=== PATIENT | male | born 1990 | race Caucasian/White ===

== ENCOUNTER 2021-06-17 01:16 | Inpatient (IN) | payer OTHER ==
[~2021-06-17] VITALS: Ht 170.2 cm; Wt 76.2 kg
--- NOTE | 2021-06-17 01:25 | PHYS DOC ---
General Adult EDM: Chief Complaint: ABDOMINAL PAIN HPI: HPI: ".. I am hurting.. I ve had something like this before.. about 2 yrs. ago.. I ended up at [facility].. I got admitted.. and was given some antibiotics.. . everything got better.. was schedule for some follow up through [facility]..that never took place.. and I eventual got deployed to [facility]... I ve been there for the past year... and just got back.. I didnt have any problems when I was stationed over in [facility].. I was also at one time to get my heart checked out..because they said I had an abnormal rhythm... but that never happened either.. " " I am worried... 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 Patient states the pain radiates to his back and left. Pain started approximately 2100 hrs. yesterday night. Pain has persistent since that time. Patient has not been able to eat because of nausea. Patient states that approximately 1600 hrs. pain became much more severe. Rates pain as 7-8/10. Patient denies any trauma. Has had recent travel from [place] that has arrived back here after a year deployment near the [facility] in [facility]. Patient states he had no abdomen complaints during the entire year deployment. No significant ill contacts prior to transfer back to [place], and no sick contacts since he has been back. No family members are sick. Patient states he has completed one COVID vaccination. Patient rates his irregular heart rhythm has gotten worse with the abdomen pain. Patient denies any chest pain. Patient denies his irregular heart rhythms never caused him any discomfort or limit of his activity. Patient is has not consumed any bad food products. Patient denies any alcohol abuse. Patient denies any history of prior diagnosis of colitis with him or family members. Patient denies any trauma. Patient denies any immunosuppression. Patient denies any diarrhea. Has had significant nausea since the onset of pain. No history of kidney stones. Patient denies any cough or fever. Patient denies any significant history of GERD or history of tarry stools. Patient states his stools yesterday had remained normal. Patient never had a colonoscopy or EGD evaluation. Patient never had a cardiac consult. Review of Systems: Review of Systems: Constitutional: Denies fever or chills Eyes: Denies change in visual acuity HENT: Denies nasal congestion or sore throat Respiratory: Denies cough or shortness of breath Cardiovascular: Denies chest pain or edema. Does complain of skipped heart beats GI: Complains of severe epigastric abdominal pain, nausea,. Denies vomiting, bloody stools or diarrhea : Denies dysuria Musculoskeletal: Denies back pain or joint pain Integument: Denies rash Neurologic: Denies headache, focal weakness or sensory changes Endocrine: Denies polyuria or polydipsia Lymphatic: Denies swollen glands Psychiatric: Denies depression or anxiety Family History: Family History: Noncontributory to presentation Current Medications: Current Meds: See nursing for home meds Allergies: Allergies: No known drug allergies Physical Exam: PE: Constitutional: Well developed, well nourished, in severe acute distress, ill in appearance. [] HENT: Normocephalic, atraumatic, bilateral external ears normal, oropharynx dry, no oral exudates, nose normal. [] Eyes: PERRLA, EOMI, conjunctiva normal, no discharge. [] Neck: Normal range of motion, no tenderness, supple, no stridor. [] Cardiovascular: Irregular heart rate regular and irregular rhythm, no murmur []. Bedside monitor shows bigeminy With ventricular rate in the 80s Lungs & Thorax: Bilateral breath sounds equal apex on auscultation [] Abdomen: Bowel sounds markedly decreased, soft, severe epigastric tenderness, no masses, no pulsatile masses. Distended. Has rebound epigastric. Guarded with any movement of his abdomen. Circumcised male testicles descended nontender. Skin: Warm, diaphoretic, no erythema, no rash. Tattoos. Back: No tenderness, no CVA tenderness. [] Extremities: No tenderness, no cyanosis, no clubbing, ROM intact, no edema. No psoas sign. Neurologic: Alert and oriented X 3, normal motor function, normal sensory func tion, no focal deficits noted. DTRs +2 patella and brachial. Plant Attendant equal. No drift. Psychologic: Affect anxious, judgement normal, mood normal. [] Current Patient Data: Labs: Labs are not crossing over.Significant labs are addressed in Impression. EKG: EKG: My interpretation EKG shows a ventricular rate of 88. Does have a sinus rhythm with persistent PVCs-bigeminy pattern. Does have a left bundle branch block. Abnormal EKG. Time of this EKG is 203 hours [] Radiology/Procedures: Radiology/Procedures: [place] [address] IMAGING REPORT Signed PATIENT: OLRNE JACKSON ACCOUNT: [id number] : 1990 LOCATION: ER AGE: 31 SEX: M EXAM STATUS: REG ER ORD. PHYSICIAN: AINSLEY STRINGER MD REASON: pain PROCEDURE: ACUTE ABDOMEN SERIES EXAM: Frontal view of the chest, AP views of the abdomen in upright and supine positions. CLINICAL INDICATION: Reason: pain / Spl. Instructions: / History: COMPARISON: None. FINDINGS and IMPRESSION: The heart is not enlarged. Mediastinal and hilar contours are normal. No focal parenchymal airspace opacity. No pleural effusion or pneumothorax. No abnormal small or large bowel dilatation. Moderate colonic stool content. No abnormal soft tissue mass effect. No suspicious calcifications are seen. No free intraperitoneal gas. Electronically signed by: Siva Guardado MD (06/17/2021 2:36 AM) [facility] DICTATED AND SIGNED BY: SIVA GUARDADO MD DATE: 06/17/21 0236 CC: AINSLEY STRINGER MD; PCP,NO ~MTH0 0 [][address] [address] IMAGING REPORT Signed PATIENT: LORNE JACKSON ACCOUNT: [id number] : 1990 LOCATION: ER AGE: 31 SEX: M EXAM STATUS: REG ER ORD. PHYSICIAN: AINSLEY STRINGER MD REASON: pain, OMNI 300, 75ml & OMNI 240, 30ml PROCEDURE: CT ABD PELV W/ORAL&IV CONTRAST EXAM: CT Abdomen and Pelvis with IV contrast CLINICAL HISTORY: Abdominal pain COMPARISON: none TECHNIQUE: Helical CT of the abdomen and pelvis was performed following the administration of intravenous contrast. Axial, coronal and sagittal reformatted images were generated. PQRS compliance statement - One or more of the following individualized dose reduction techniques were utilized for this study: 1. Automated exposure control 2. Adjustment of the mA and/or kV according to patient size 3. Use of iterative reconstruction technique FINDINGS: Lower Chest: Lung bases are clear. Abdomen and Pelvis: Hepatic hypoattenuation, fatty liver. Gallbladder is normal. No biliary ductal dilatation. Spleen and adrenal glands are unremarkable. Symmetric nephrograms. No focal renal lesion. No hydronephrosis. No hydroureter. Bladder is unremarkable. There is infiltration about the pancreatic tail which may be seen with pancreatitis. Focal low-attenuation within the pancreatic tail may represent pancreatic ischemia or focal edema. Moderate colonic stool content is seen. Appendix is normal. No small or large bowel dilatation. No bowel obstruction no abdominal or pelvic ascites. No abdominal or pelvic lymphadenopathy. Trace fat-containing periumbilical hernia. Bones: No aggressive osseous lesion is seen. Serpentine sclerosis right femoral head without collapse. IMPRESSION: 1. Changes of acute pancreatitis involving the pancreatic tail. Associated low- attenuation within the pancreatic tail likely from focal edema or ischemia. Recommend close attention on follow-up to exclude underlying pancreatic mass. 2. Hepatic hypoattenuation, fatty liver. 3. 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 Electronically signed by: Siva Guardado MD (06/17/2021 3:58 AM) [facility] DI[facility]ATED AND SIGNED BY: SIVA GUARDADO MD DATE: 06/17/21 0350 CC: AINSLEY STRINGER MD; PCP,NO ~MTH0 0 Heart Score: C/O Chest Pain: No HEART Score for Chest Pain: HEART Score for Chest Pain Response (Comments) Value History Moderately Suspicious 1 ECG Nonspecific Repolarizatio 1 Age < 45 0 Risk Factors No Risk Factors 0 Troponin < Normal Limit 0 Total 2 Risk Factors: Risk Factors: DM, Current or recent (<one month) smoker, HTN, HLP, family history of CAD, obesity. Risk Scores: Score 0 - 3: 2.5% MACE over next 6 weeks - Discharge Home Score 4 - 6: 20.3% MACE over next 6 weeks - Admit for Clinical Observation Score 7 - 10: 72.7% MACE over next 6 weeks - Early Invasive Strategies Course & Med Decision Making: Course & Med Decision Making Pertinent Labs and Imaging studies reviewed. (See chart for details) Patient remained in bigeminy off and on for most of the night . Patient not concerned about his heart rhythm. Patient's abdomen pain persisted throughout the night with minimal relief until second dose of morphine 10 mg. Discussed presentation, testing and treatment plan with Dr. Alvarado. Plan admit to his service and treat as pancreatitis. Patient may need more definitive evaluation of pancreas such as an MRI of contrast since pancreatic mass sometimes are hard to identify with normal CT work-up. Plan keep n.p.o. status and continue hydration.. Will get a cardiac consult for his bigeminy-which has been present reportedly for the last couple years if not more.. Impression: 1. Abdomen pain-epigastric 2. Pancreatitis-lipase 661 3. Elevated AST of 41 and ALT 67 4. Mild leukocytosis 12.1 5. Glucose 124 6. Bigeminy 7. Constipation. Patient admitted to service- awaiting bed opening in [facility]. [] Dragon Disclaimer: Dragon Disclaimer: This electronic medical record was generated, in whole or in part, using a voice recognition dictation system. Departure Departure: Referrals: PCP,NO (PCP) Dragon Disclaimer This chart was dictated in whole or in part using Voice Recognition software in a busy, high-work load, and often noisy Emergency Department environment. It may contain unintended and wholly unrecognized errors or omissions. Dragon Disclaimer This chart was dictated in whole or in part using Voice Recognition software in a busy, high-work load, and often noisy Emergency Department environment. It may contain unintended and wholly unrecognized errors or omissions. AINSLEY STRINGER MD Jun 17, 2021 01:25
[2021-06-17 02:08] LABS: BASO # 0.1 x10^3/uL (0.0-0.2); BASO % 1 % (0-3); EOS % 0 % (0-3); HEMATOCRIT 46.4 % (39.0-53.0); HEMOGLOBIN 15.8 g/dL (13.0-17.5); LYMPH # 1.7 x10^3/uL (1.0-4.8); LYMPH % 14 % (24-48); MEAN CORPUSCULAR HEMOGLOBIN 33 pg (25-35); MEAN CORPUSCULAR HGB CONC 34 g/dL (31-37); MEAN CORPUSCULAR VOLUME 97 fL (79-100); MONO % 9 % (0-9); NEUT # 9.1 x10^3uL (1.8-7.7); NEUT % 76 % (31-73); PLATELET COUNT 251 x10^3/uL (140-400); RED BLOOD COUNT 4.77 x10^6/uL (4.30-5.70); RED CELL DISTRIBUTION WIDTH 12.5 % (11.5-14.5); WHITE BLOOD COUNT 12.1 x10^3/uL (4.0-11.0)
[2021-06-17 02:09] LABS: CALCIUM 9.1 mg/dL (8.5-10.1); CREATININE 0.9 mg/dL (0.7-1.3); GFR 98.4; POTASSIUM 3.5 mmol/L (3.5-5.1)
[2021-06-17 02:14] LABS: BILIRUBIN,URINE SMALL (NEG); CLARITY,URINE CLEAR; COLOR,URINE YELLOW; GLUCOSE,URINE NEG (NEG); NITRITE,URINE NEG (NEG); RBC,URINE OCC /HPF (0-2); UROBILINOGEN,URINE 0.2 mg/dL (0.2 mg/dL); WBC,URINE RARE /HPF (0-4)
[2021-06-17 02:15] LABS: ALBUMIN 4.4 g/dL (3.4-5.0); DIRECT BILIRUBIN 0.2 mg/dL (0.0-0.2); TOTAL BILIRUBIN 0.8 mg/dL (0.2-1.0); TOTAL PROTEIN 7.9 g/dL (6.4-8.2)
[2021-06-17 02:15] LABS: BACTERIA,URINE 0 /HPF (0-FEW); SQUAMOUS EPITHELIAL CELL,UR OCC /LPF
[2021-06-17] MEDS ORDERED: MAGNESIUM HYDROXIDE 2,400 MG/30 ML ORAL.SUSP. PO ONE (02:30)
[2021-06-17] MEDS ORDERED: IV RINGERS SOLUTION,LACTATED 1,000 ML IV SCH (02:30)
[2021-06-17] MEDS ORDERED: ONDANSETRON PF 4 MG/2 ML VIAL. IVP ONE (02:30)
[2021-06-17] MEDS ORDERED: KETOROLAC 30 MG/ML VIAL. IVP ONE (02:30)
[2021-06-17] MEDS ORDERED: FAMOTIDINE 20 MG/2 ML VIAL IVP ONE (02:30)
--- NOTE | 2021-06-17 02:39 | RAD ---
EXAM: Frontal view of the chest, AP views of the abdomen in upright and supine positions. CLINICAL INDICATION: Reason: pain / Spl. Instructions: / History: COMPARISON: None. FINDINGS and IMPRESSION: The heart is not enlarged. Mediastinal and hilar contours are normal. No focal parenchymal airspace o pacity. No pleural effusion or pneumothorax. No abnormal small or large bowel dilatation. Moderate colonic stool content. No abnormal soft tissu e mass effect. No suspicious calcifications are seen. No free intraperitoneal gas. Electronically signed by: Siva Caceres MD (06/17/2021 2:36 AM) [facility]
[2021-06-17 02:45] LABS: INFLUENZA A PATIENT NEGATIVE (NEGATIVE); INFLUENZA B PATIENT NEGATIVE (NEGATIVE)
[2021-06-17] MEDS ORDERED: CONTRAST GIVEN. MC PRN (02:45)
[2021-06-17] MEDS ORDERED: IOHEXOL 240 MG/ML 50ML VIAL. PO ONE (03:00)
[2021-06-17] MEDS ORDERED: IOHEXOL 300 MG/ML 75 ML VIAL. IV ONE (03:00)
[2021-06-17] MEDS ORDERED: IV RINGERS SOLUTION,LACTATED 1,000 ML IV ONE (03:30)
[2021-06-17] MEDS ORDERED: MORPHINE SULFATE 10 MG/ML SYRINGE. SQ ONE ×2 (03:30→05:00)
--- NOTE | 2021-06-17 04:01 | RAD ---
EXAM: CT Abdomen and Pelvis with IV contrast CLINICAL HISTORY: Abdominal pain COMPARISON: none TECHNIQUE: Helical CT of the abdomen and pelvis was performed following the administration of intrave nous contrast. Axial, coronal and sagittal reformatted images were generated. PQRS compliance statement - One or more of the following individualized dose reduction techniques wer e utilized for this study: 1. Automated exposure control 2. Adjustment of the mA and/or kV according to patient size 3. Use of iterative reconstruction technique FINDINGS: Lower Chest: Lung bases are clear. Abdomen and Pelvis: Hepatic hypoattenuation, fatty liver. Gallbladder is normal. No biliary ductal dilatation. Spleen and adrenal glands are unremarkable. Symmetric nephrograms. No focal renal lesion. No hydronephrosis. No hydroureter. Bladder is unremarkable. There is infiltration about the pancreatic tail which may be seen with pancreatitis. Focal low-attenu ation within the pancreatic tail may represent pancreatic ischemia or focal edema. Moderate colonic stool content is seen. Appendix is normal. No small or large bowel dilatation. No homero wel obstruction no abdominal or pelvic ascites. No abdominal or pelvic lymphadenopathy. Trace fat-con taining periumbilical hernia. Bones: No aggressive osseous lesion is seen. Serpentine sclerosis right femoral head without collapse. IMPRESSION: 1. Changes of acute pancreatitis involving the pancreatic tail. Associated low-attenuation within th e pancreatic tail likely from focal edema or ischemia. Recommend close attention on follow-up to excl ude underlying pancreatic mass. 2. Hepatic hypoattenuation, fatty liver. 3. 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 Electronically signed by: Siva Caceres MD (06/17/2021 3:58 AM) [facility]LE
[2021-06-17] MEDS ORDERED: ACETAMINOPHEN 325 MG TABLET PO PRN (04:45)
[2021-06-17] MEDS ORDERED: MORPHINE SULFATE 10 MG/ML SYRINGE. SQ PRN (04:45)
[2021-06-17] MEDS ORDERED: ONDANSETRON PF 4 MG/2 ML VIAL. IVP PRN ×2 (04:45→08:15)
[2021-06-17] MEDS ORDERED: IV NORMAL SALINE 50ML 50 ML ONE (04:52)
[2021-06-17] MEDS ORDERED: cefTRIAXone SODIUM 1 GM VIAL ONE (04:52)
[2021-06-17] MEDS ORDERED: ENOXAPARIN ** NOTE DOSE ** SYRINGE SQ SCH (05:30)
[2021-06-17] MEDS ORDERED: MORPHINE SULFATE 4 MG/ML DISP.SYRIN. IV PRN (08:15)
[2021-06-17] MEDS: SUCRALFATE 1 GM TABLET. PO SCH ×4 (09:00→19:33)
[2021-06-17 10:56] VITALS: BP 173/74
[2021-06-17] MEDS ORDERED: LISI20TA18 PO (10:59)
[2021-06-17] MEDS ORDERED: ESOM20CA PO (10:59)
[2021-06-17] MEDS: FAMOTIDINE 20 MG/2 ML VIAL IV SCH ×2 (13:28→19:32)
[2021-06-17] MEDS: HYDROmorphone PF 1 MG/ML DISP.SYRIN IVP PRN ×4 (13:29→22:51)
--- NOTE | 2021-06-17 14:47 | HP ---
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 The pain radiates to the back and his left side, started around 2100 yesterday night. The pain is persistent since that time. He has not been able to eat because of nausea. The patient states at approximately 1600, the pain became much more severe, rates the pain at around 7-8/10. Denies any trauma. 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 The patient stated that he had no abdominal complaint during the entire year of deployment. No significant ill contact prior to transfer back to [place] and no sick contacts once he has arrived here, has no family members who are sick. The patient states that he has completed one COVID vaccination. He also complained that he has irregular heartbeat that has gotten worse with the abdominal pain. He denied, however, any chest pain. Denied any palpitation. He was extensively investigated and has had lab work and imaging studies. His white cell count was slightly elevated at 12,000. His chemistry was significant for elevated serum lipase. His urinalysis was unremarkable and his rapid coronavirus testing was negative. The PCR is still pending. His influenza A and B were negative. Did have also a CT scan of the abdomen and pelvis, which showed changes of acute pancreatitis above pancreatic tail, associated low attenuation within the pancreas tail, likely from focal edema or ischemia. The radiologist recommended close attention on followup to exclude underlying pancreatic mass. He was also found to have hepatic hypoattenuation consistent with fatty liver. He has also right femoral head osteonecrosis without collapse. The patient was admitted with acute pancreatitis, started on IV fluid, kept n.p.o., started on pain medication, antiemetic. PAST MEDICAL HISTORY: Significant for gastroesophageal reflux disease, hypertension and a similar episode of acute pancreatitis 2 years ago. At that time, he was admitted to [facility]. He has also childhood bronchial asthma that he has outgrown. PAST SURGICAL HISTORY: Unremarkable. ALLERGIES: HE HAS NO KNOWN DRUG ALLERGIES. MEDICATIONS: He is currently on the following medications: He is on lisinopril 20 mg once a day and Nexium 20 mg once a day. FAMILY HISTORY: He has two brothers and three sister, all older and healthy. His father is alive at the age of 66 and has diabetes mellitus. Mother is alive at the age of 55 and has diabetes and cerebrovascular accident. SOCIAL HISTORY: He is , has 3 daughters. He is currently everyday smoker. Drinks alcohol occasionally. According to him, he does not use any drugs. He is in the . PHYSICAL EXAMINATION: GENERAL: On arrival to the Emergency Room, the patient looked well and was clearly in no apparent respiratory distress. No pallor, jaundice, cyanosis or thyromegaly. No jugular venous distention. No limb edema. VITAL SIGNS: His heart rate was 51, blood pressure 154/88. His temperature was 97.5, respiratory rate was 12, and oxygen saturation was 98% on room air. HEAD, EYES, EARS, NOSE, AND THROAT: Normocephalic, atraumatic. NECK: Supple. HEART: Showed normal first and second heart sounds. No gallop, rub or murmur. CHEST: Clear to auscultation, no crepitation or rhonchi. ABDOMEN: Distended with tenderness mostly in the epigastric and left upper quadrant. There is no guarding or rigidity. No organomegaly. All hernial orifices intact. Bowel sounds normal. NEUROLOGIC: He was grossly intact. LABORATORY DATA: Showed a white cell count of 12,100, hemoglobin 16, hematocrit 46, MCV 97 and platelet count 251,000 with normal manual differential. His chemistry showed a serum sodium 137, potassium 3.5, chloride 98, bicarbonate 26, anion gap of 13, BUN 14, creatinine 0.6. His estimated GFR was 98 mL per minute, glucose 124, calcium 9.1. Total bilirubin and alkaline phosphatase were normal. AST, ALT slightly elevated. CK was 148. Total protein 7.9, albumin 4.4. Serum lipase was 661. His urinalysis was essentially unremarkable, and his coronavirus by rapid testing was negative. Influenza A and B were negative. His CT scan of the abdomen and pelvis showed changes of acute pancreatitis involving the pancreatic tail associated with low attenuation within the pancreatic tail, likely from focal edema or ischemia. Recommend close attention on followup to exclude underlying pancreatic mass, has also hepatic hypoattenuation and fatty liver and right femoral osteonecrosis without collapse. ASSESSMENT AND PLAN: In summary, this is a 31-year-old male patient who was admitted again with another episode of acute pancreatitis, likely alcohol related, although his blood alcohol level was not measured during admission. He has other medical problems to include gastroesophageal reflux disease, hypertension, and bronchial asthma. He will be kept n.p.o. Continue with IV fluids, IV pain medication, antiemetic. We will monitor his labs closely and once his inflammation subsides, we can start him on a clear liquid diet and advance as tolerated. AYAZ/ESTRELLA/HERNÁN DR: Dora TID: [id number]
[2021-06-17 15:50] VITALS: BP 145/96
[2021-06-17 19:07] VITALS: BP 147/97
--- NOTE | 2021-06-17 19:30 | EKG ---
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
--- NOTE | 2021-06-17 19:31 | EKG ---
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
[2021-06-17] MEDS: LISINOPRIL 20 MG TABLET PO SCH (19:33)
[2021-06-17] MEDS ORDERED: MAGNESIUM HYDROXIDE 2,400 MG/30 ML ORAL.SUSP. PO SCH (21:00)
[2021-06-18 00:29] VITALS: BP 120/81
[2021-06-18] MEDS: HYDROmorphone PF 1 MG/ML DISP.SYRIN IVP PRN ×7 (02:03→22:38)
[2021-06-18 06:24] LABS: BASO # 0.1 x10^3/uL (0.0-0.2); BASO % 1 % (0-3); EOS % 0 % (0-3); HEMATOCRIT 47.6 % (39.0-53.0); HEMOGLOBIN 16.2 g/dL (13.0-17.5); LYMPH # 0.7 x10^3/uL (1.0-4.8); LYMPH % 6 % (24-48); MEAN CORPUSCULAR HEMOGLOBIN 34 pg (25-35); MEAN CORPUSCULAR HGB CONC 34 g/dL (31-37); MEAN CORPUSCULAR VOLUME 99 fL (79-100); MONO # 0.6 x10^3/uL (0.0-1.1); MONO % 5 % (0-9); NEUT # 9.5 x10^3uL (1.8-7.7); NEUT % 88 % (31-73); PLATELET COUNT 200 x10^3/uL (140-400); RED BLOOD COUNT 4.82 x10^6/uL (4.30-5.70); RED CELL DISTRIBUTION WIDTH 12.7 % (11.5-14.5); WHITE BLOOD COUNT 10.8 x10^3/uL (4.0-11.0)
[2021-06-18 06:42] LABS: ALBUMIN 3.5 g/dL (3.4-5.0); ALBUMIN/GLOBULIN RATIO 0.9 (1.0-1.7); CALCIUM 9.1 mg/dL (8.5-10.1); CREATININE 0.9 mg/dL (0.7-1.3); GFR 98.4; POTASSIUM 3.9 mmol/L (3.5-5.1); TOTAL BILIRUBIN 1.1 mg/dL (0.2-1.0); TOTAL PROTEIN 7.5 g/dL (6.4-8.2)
[2021-06-18 07:13] VITALS: BP 125/81
--- NOTE | 2021-06-18 08:42 | PDOC2 ---
CARDIAC CONSULT PAST MEDICAL HISTORY GI: Other (pancreatitis ) CURRENT MEDICATIONS Current Medications Current Medications Lactated Ringer's 1,000 ml @ 1,000 mls/hr Q1H IV Last administered on 06/17/21at 02:11; Start 06/17/21 at 02:30; Stop 06/17/21 at 03:29; Status DC Ondansetron HCl (Zofran) 8 mg 1X ONCE IVP Last administered on 06/17/21at 02:11; Start 06/17/21 at 02:30; Stop 06/17/21 at 02:31; Status DC Famotidine (Pepcid Vial) 20 mg 1X ONCE IVP Last administered on 06/17/21at 02:13; Start 06/17/21 at 02:30; Stop 06/17/21 at 02:31; Status DC Ketorolac Tromethamine (Toradol 30mg Vial) 30 mg 1X ONCE IVP Last administered on 06/17/21at 02:15; Start 06/17/21 at 02:30; Stop 06/17/21 at 02:31; Status DC Magnesium Hydroxide (Milk Of Magnesia) 2,400 mg 1X ONCE PO Last administered on 06/17/21at 02:11; Start 06/17/21 at 02:30; Stop 06/17/21 at 02:31; Status DC Iohexol (Omnipaque 240 Mg/ml) 30 ml 1X ONCE PO Last administered on 06/17/21at 03:35; Start 06/17/21 at 03:00; Stop 06/17/21 at 03:01; Status DC Iohexol (Omnipaque 300 Mg/ml) 75 ml 1X ONCE IV Last administered on 06/17/21at 03:35; Start 06/17/21 at 03:00; Stop 06/17/21 at 03:01; Status DC Info (Do NOT chart on this entry -- for MONITORING) 1 each PRN DAILY PRN MC SEE COMMENTS; Start 06/17/21 at 02:45; Stop 06/19/21 at 02:44 Lactated Ringer's 1,000 ml @ 1,000 mls/hr 1X ONCE IV Last administered on 06/17/21at 03:24; Start 06/17/21 at 03:30; Stop 06/17/21 at 04:29; Status DC Morphine Sulfate (Morphine 10mg Syringe) 10 mg 1X ONCE SQ Last administered on 06/17/21at 03:24; Start 06/17/21 at 03:30; Stop 06/17/21 at 03:31; Status DC Morphine Sulfate (Morphine 10mg Syringe) 10 mg 1X ONCE SQ Last administered on 06/17/21at 04:32; Start 06/17/21 at 05:00; Stop 06/17/21 at 05:02; Status DC Ceftriaxone Sodium 1 gm/ Sodium Chloride 50 ml @ 100 mls/hr 1X ONCE IV Last administered on 06/17/21at 04:59; Start 06/17/21 at 05:00; Stop 06/17/21 at 05:29; Status DC Metronidazole 100 ml @ 100 mls/hr 1X ONCE IV Last administered on 06/17/21at 05:26; Start 06/17/21 at 05:00; Stop 06/17/21 at 05:59; Status DC Ondansetron HCl (Zofran) 4 mg PRN Q4HRS PRN IVP NAUSEA/VOMITING; Start 06/17/21 at 04:45; Stop 06/17/21 at 08:27; Status DC Acetaminophen (Tylenol) 650 mg PRN Q4HRS PRN PO FEVER > 100.3'F; Start 06/17/21 at 04:45; Stop 06/18/21 at 04:44; Status DC Famotidine (Pepcid Vial) 20 mg BID IV Last administered on 06/17/21at 19:32; Start 06/17/21 at 09:00; Stop 06/18/21 at 08:59 Enoxaparin Sodium (Lovenox 80mg Syringe) 80 mg Q12HR SQ Last administered on 06/17/21at 05:26; Start 06/17/21 at 05:30; Stop 06/17/21 at 05:31; Status DC Morphine Sulfate (Morphine 10mg Syringe) 10 mg QIDPRN PRN SQ PAIN; Start 06/17/21 at 04:45; Stop 06/17/21 at 08:27; Status DC Magnesium Hydroxide (Milk Of Magnesia) 2,400 mg HS PO Last administered on 06/17/21at 19:33; Start 06/17/21 at 21:00; Stop 06/18/21 at 20:59 Sucralfate (Carafate) 1 gm QID PO Last administered on 06/17/21at 19:33; Start 06/17/21 at 09:00; Stop 06/18/21 at 08:59 Ceftriaxone Sodium 1 gm/ Sodium Chloride 50 ml @ 100 mls/hr DAILY06 IV Last ad ministered on 06/18/21at 05:45; Start 06/18/21 at 06:00; Stop 06/19/21 at 05:59 Metronidazole 100 ml @ 100 mls/hr Q8HRS IV ; Start 06/17/21 at 14:00; Stop 06/17/21 at 14:22; Status DC Sodium Chloride 50 ml @ As Directed STK-MED ONCE .ROUTE ; Start 06/17/21 at 04:52; Stop 06/17/21 at 04:53; Status DC Ceftriaxone Sodium (Rocephin) 1 gm STK-MED ONCE .ROUTE ; Start 06/17/21 at 04:52; Stop 06/17/21 at 04:53; Status DC Morphine Sulfate (Morphine 4mg Syringe) 4 mg PRN Q4HRS PRN IV PAIN Last administered on 06/17/21at 08:41; Start 06/17/21 at 08:15; Stop 06/17/21 at 13:15; Status DC Ondansetron HCl (Zofran) 4 mg PRN Q4HRS PRN IVP NAUSEA Last administered on 06/17/21at 08:40; Start 06/17/21 at 08:15 Hydromorphone HCl (Dilaudid) 1 mg PRN Q3HRS PRN IVP PAIN Last administered on 06/18/21at 05:44; Start 06/17/21 at 13:15 Metronidazole 100 ml @ 100 mls/hr Q8HRS IV Last administered on 06/18/21at 05:43; Start 06/17/21 at 14:30 Lisinopril (Prinivil) 20 mg QHS PO Last administered on 06/17/21at 19:33; Start 06/17/21 at 21:00 Pantoprazole Sodium (Protonix) 40 mg DAILY PO ; Start 06/18/21 at 09:00 Active Scripts Active Reported Lisinopril 20 Mg Tablet 1 Tab PO QHS Nexium Capsule (Esomeprazole Magnesium) 20 Mg Capsule.dr 1 Cap PO DAILY ALLERGIES Allergies: Coded Allergies: No Known Drug Allergies (Unverified , 06/17/21) VITALS Vital Signs Vital Signs Date Time Temp Pulse Resp B/P (MAP) Pulse Ox O2 Delivery O2 Flow Rate FiO2 06/18/21 07:13 98.4 113 18 125/81 (96) 96 Room Air LABS LABS Laboratory Tests Test 06/17/21 01:35 06/17/21 01:40 06/17/21 02:10 06/17/21 04:20 White Blood Count 12.1 x10^3/uL (4.0-11.0) Red Blood Count 4.77 x10^6/uL (4.30-5.70) Hemoglobin 15.8 g/dL (13.0-17.5) Hematocrit 46.4 % (39.0-53.0) Mean Corpuscular Volume 97 fL (79-100) Mean Corpuscular Hemoglobin 33 pg (25-35) Mean Corpuscular Hemoglobin Concent 34 g/dL (31-37) Red Cell Distribution Width 12.5 % (11.5-14.5) Platelet Count 251 x10^3/uL (140-400) Neutrophils (%) (Auto) 76 % (31-73) Lymphocytes (%) (Auto) 14 % (24-48) Monocytes (%) (Auto) 9 % (0-9) Eosinophils (%) (Auto) 0 % (0-3) Basophils (%) (Auto) 1 % (0-3) Neutrophils # (Auto) 9.1 x10^3uL (1.8-7.7) Lymphocytes # (Auto) 1.7 x10^3/uL (1.0-4.8) Monocytes # (Auto) 1.0 x10^3/uL (0.0-1.1) Eosinophils # (Auto) 0.0 x10^3/uL (0.0-0.7) Basophils # (Auto) 0.1 x10^3/uL (0.0-0.2) Sodium Level 137 mmol/L (136-145) Potassium Level 3.5 mmol/L (3.5-5.1) Chloride Level 98 mmol/L (98-107) Carbon Dioxide Level 26 mmol/L (21-32) Anion Gap 13 (6-14) Blood Urea Nitrogen 14 mg/dL (8-26) Creatinine 0.9 mg/dL (0.7-1.3) Estimated GFR (Cockcroft-Gault) 98.4 Glucose Level 124 mg/dL (70-99) Calcium Level 9.1 mg/dL (8.5-10.1) Total Bilirubin 0.8 mg/dL (0.2-1.0) Direct Bilirubin 0.2 mg/dL (0.0-0.2) Aspartate Amino Transf (AST/SGOT) 41 U/L (15-37) Alanine Aminotransferase (ALT/SGPT) 67 U/L (16-63) Alkaline Phosphatase 54 U/L (46-116) Creatine Kinase 148 U/L (39-308) Troponin I Quantitative < 0.017 ng/mL (0-0.055) < 0.017 ng/mL (0-0.055) Total Protein 7.9 g/dL (6.4-8.2) Albumin 4.4 g/dL (3.4-5.0) Amylase Level 67 U/L (25-115) Lipase 661 U/L (73-393) Hepatitis A IgM Antibody Nonreactive (Nonreactive) Hepatitis B Surface Antigen Nonreactive (Nonreactive) Hepatitis B Core IgM Antibody Nonreactive (Nonreactive) Hepatitis C IgG Antibody Nonreactive (Nonreactive) Urine Collection Type Unknown Urine Color Yellow Urine Clarity Clear Urine pH 6.5 Urine Specific Ruffin >=1.030 Urine Protein 100 mg/dl (NEG-TRACE) Urine Glucose (UA) Neg mg/dL (NEG) Urine Ketones (Stick) 40 mg/dL (NEG) Urine Blood Trace (NEG) Urine Nitrite Neg (NEG) Urine Bilirubin Small (NEG) Urine Urobilinogen Dipstick 0.2 mg/dL (0.2 mg/dL) Urine Leukocyte Esterase Neg (NEG) Urine RBC Occ /HPF (0-2) Urine WBC Rare /HPF (0-4) Urine Squamous Epithelial Cells Occ /LPF Urine Bacteria 0 /HPF (0-FEW) Urine Mucus Mod /LPF Coronavirus (COVID-19)(PCR) Not detected (NOT DETECTD) Influenza Type A (Rapid) Negative (NEGATIVE) Influenza Type B (Rapid) Negative (NEGATIVE) Test 06/17/21 05:01 06/17/21 17:26 06/18/21 05:49 SARS-CoV-2 Antigen (Rapid) Negative (NEGATIVE) Magnesium Level 1.9 mg/dL (1.8-2.4) White Blood Count 10.8 x10^3/uL (4.0-11.0) Red Blood Count 4.82 x10^6/uL (4.30-5.70) Hemoglobin 16.2 g/dL (13.0-17.5) Hematocrit 47.6 % (39.0-53.0) Mean Corpuscular Volume 99 fL (79-100) Mean Corpuscular Hemoglobin 34 pg (25-35) Mean Corpuscular Hemoglobin Concent 34 g/dL (31-37) Red Cell Distribution Width 12.7 % (11.5-14.5) Platelet Count 200 x10^3/uL (140-400) Neutrophils (%) (Auto) 88 % (31-73) Lymphocytes (%) (Auto) 6 % (24-48) Monocytes (%) (Auto) 5 % (0-9) Eosinophils (%) (Auto) 0 % (0-3) Basophils (%) (Auto) 1 % (0-3) Neutrophils # (Auto) 9.5 x10^3uL (1.8-7.7) Lymphocytes # (Auto) 0.7 x10^3/uL (1.0-4.8) Monocytes # (Auto) 0.6 x10^3/uL (0.0-1.1) Eosinophils # (Auto) 0.0 x10^3/uL (0.0-0.7) Basophils # (Auto) 0.1 x10^3/uL (0.0-0.2) Sodium Level 137 mmol/L (136-145) Potassium Level 3.9 mmol/L (3.5-5.1) Chloride Level 99 mmol/L (98-107) Carbon Dioxide Level 29 mmol/L (21-32) Anion Gap 9 (6-14) Blood Urea Nitrogen 7 mg/dL (8-26) Creatinine 0.9 mg/dL (0.7-1.3) Estimated GFR (Cockcroft-Gault) 98.4 BUN/Creatinine Ratio 8 (6-20) Glucose Level 116 mg/dL (70-99) Calcium Level 9.1 mg/dL (8.5-10.1) Total Bilirubin 1.1 mg/dL (0.2-1.0) Aspartate Amino Transf (AST/SGOT) 33 U/L (15-37) Alanine Aminotransferase (ALT/SGPT) 45 U/L (16-63) Alkaline Phosphatase 48 U/L (46-116) Total Protein 7.5 g/dL (6.4-8.2) Albumin 3.5 g/dL (3.4-5.0) Albumin/Globulin Ratio 0.9 (1.0-1.7) Lipase 664 U/L (73-393) SUZIE VARELA APRN Jun 18, 2021 08:42
[2021-06-18] MEDS: PANTOPRAZOLE 40 MG TABLET. PO SCH (09:05)
--- NOTE | 2021-06-18 10:09 | PN ---
DATE: 06/18/2021 ATTENDING PHYSICIAN: Dr. Alvarado. SUBJECTIVE: The patient is still symptomatic. He has dry mouth and he has localized abdominal pain. OBJECTIVE FINDINGS: VITAL SIGNS: Blood pressure this morning is 120/81 mmHg, pulse is 88 and regular. He is afebrile. Oxygen saturation 96% on room air. HEENT: Head is without trauma. Pupils are reactive. Sclerae nonicteric. Oropharynx clear. NECK: Supple, no bruits. LUNGS: Clear. CARDIOVASCULAR: Showed regular heart tones. ABDOMEN: Soft. There is minimal guarding, no rebound tenderness. EXTREMITIES: Show no cyanosis or edema. SKIN: Warm and dry. NEUROLOGIC: Function focally intact. No obvious seizure activity. Bilirubin today is 1.1. The lipase level is 664. ASSESSMENT: 1. A 31-year-old gentleman with alcoholic pancreatitis. 2. Associated abdominal pain with nausea. PLAN: 1. Keep n.p.o. 2. Ice chips p.r.n. 3. Continue IV hydration. 4. Advance diet as tolerated. ADEEL DR: Mamadou TID: [id number]
[2021-06-18 10:30] VITALS: BP 120/89
[2021-06-18 15:42] VITALS: BP 123/88
[2021-06-18] MEDS: LISINOPRIL 20 MG TABLET PO SCH ×2 (19:57→21:00)
[2021-06-18 20:53] VITALS: BP 113/70
[2021-06-18 22:13] VITALS: BP 122/88
[2021-06-19] MEDS ORDERED: IV NORMAL SALINE 1,000ML 1,000 ML IV SCH (01:15)
[2021-06-19] MEDS: HYDROmorphone PF 1 MG/ML DISP.SYRIN IVP PRN ×3 (01:37→09:15)
[2021-06-19 05:35] VITALS: BP 134/75
[2021-06-19] MEDS: PANTOPRAZOLE 40 MG TABLET. PO SCH (09:16)
[2021-06-19] MEDS ORDERED: OXYC1TAB22 PO (09:39)
--- NOTE | 2021-06-19 10:35 | DS ---
DATE OF DISCHARGE: 06/19/2021 ATTENDING PHYSICIAN: Dr. Alvarado. FINAL DISCHARGE DIAGNOSES: 1. Abdominal pain. 2. Acute pancreatitis. 3. Alcohol-related pancreatitis. 4. Chronic alcoholism. 5. Essential hypertension. 6. Gastroesophageal reflux disease. 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 He is a binge drinker. He presented with abdominal pain and nausea, mostly epigastric. He had evidence of acute pancreatitis. PHYSICAL EXAMINATION: Please see the dictated note. PERTINENT LABORATORY AND X-RAY STUDIES: Admission hemoglobin is 15.8 g/dL, white count 12,100, repeated was down to 10,800. Chemistry panel fairly unremarkable and within normal range. Admission lipase was 664. IMAGING STUDIES: Acute abdominal series showed no obstruction. CT abdomen and pelvis showed changes of acute pancreatitis involving the pancreatic fat, associated low attenuation within the pancreas tail, most likely from focal edema. No pseudocysts were identified. COURSE IN THE HOSPITAL: The patient was admitted. He was kept n.p.o., started on IV hydration, pain and nausea control. He did better. Diet was advanced to clear liquids. He tolerated well. By the third hospital day, his vital signs are stable. Pain was better controlled. He wanted to go home. I felt this is reasonable. His vital signs on the day of discharge were stable. He is afebrile. He is tolerating small amounts of liquids. At this time, he should continue his lisinopril and omeprazole. I did call in a script for Percocet 10 mg 1 every 4 hours p.r.n. pain. Strong encouragement to avoid further alcohol use, whether or not he quits drinking remains to be seen. In any event, the patient was discharged from our hospital in stable condition with explicit drug and followup care. Total discharge time spent 41 minutes. JOSEFINA/NAFISA DR: Mamadou TID: [id number]
== END 2021-06-19 11:15 | disposition home or self-care (01) | DRG 438 ==
LOC: ER 01:16 → 1 SOUTH 04:35
PROVIDERS: ADMIT Internal Medicine; ATTEND Internal Medicine
DX: K85.20 Alcohol induced acute pancreatitis without necrosis or infection (principal); R65.11 Systemic inflammatory response syndrome (SIRS) of non-infectious origin with acute organ dysfunction; M87.9 Osteonecrosis, unspecified; F10.20 Alcohol dependence, uncomplicated; F17.200 Nicotine dependence, unspecified, uncomplicated; I10 Essential (primary) hypertension; I49.9 Cardiac arrhythmia, unspecified; J45.909 Unspecified asthma, uncomplicated; K21.9 Gastro-esophageal reflux disease without esophagitis; K59.00 Constipation, unspecified; K76.0 Fatty (change of) liver, not elsewhere classified; Z82.3 Family history of stroke; Z83.3 Family history of diabetes mellitus; Z20.822 Contact with and (suspected) exposure to COVID-19; D72.829 Elevated white blood cell count, unspecified
CPT/HCPCS: 36415; 74022; 74177; 80048; 80053; 80076; 81001; 82150; 82550; 83690; 83735; 84443; 84484; 85025; 86705; 86709; 86803; 87340; 87426; 87804; 93005; 96361; 96372; 96374; 96375; J0696; J1170; J1650; J1885; J2270; J2405; J3490; J7120; Q9966; Q9967; U0003; 99285-25; J7030